=== PATIENT | male | born 1965 | race Two or more races ===

== ENCOUNTER 2019-06-05 15:55 | Emergency (ER) | payer MEDICAID, MEDICARE ==
[~2019-06-05] VITALS: Ht 167.6 cm; Wt 96.1 kg
--- NOTE | 2019-06-05 16:01 | NUR ---
pt was admitted to [facility] following a 3 day alvin drinking episode. daughter stated pt was asleep when he statred having seizure like activity lasting about 1 min. daughter stated pt did not hit his head. daughter and pt stated this has happened (seizure) in the past while trying to detox.
[2019-06-05] MEDS: PLEASE ENTER ALLERGIES MC SCH ×2 (16:18→16:27)
[2019-06-05] MEDS ORDERED: THIAMINE 100MG TABLET ONE (16:21)
[2019-06-05] MEDS ORDERED: CHLORDIAZEPOXIDE 25 MG CAPSULE ONE (16:21)
[2019-06-05 16:23] LABS: BASOPHILS # (AUTO) 0.03 x10^3/uL (0-0.1); BASOPHILS % (AUTO) 0 % (0-1); EOSINOPHILS # (AUTO) 0.14 x10^3/uL (0-0.4); EOSINOPHILS % (AUTO) 2 % (1-7); LYMPHOCYTES # (AUTO) 1.67 x10^3/uL (1-3.4); LYMPHOCYTES % (AUTO) 23 % (22-44); MD NO; MEAN CORPUSCULAR VOLUME 74.9 fL (81-97); MEAN PLATELET VOLUME 9.4 fL (7.4-10.4); MONOCYTES # (AUTO) 0.66 x10^3/uL (0.2-0.8); MONOCYTES % (AUTO) 9 % (2-9); NEUTROPHILS # (AUTO) 4.93 x10^3/uL (1.8-6.8); NEUTROPHILS % (AUTO) 66 % (42-75); PLATELET COUNT 237 x10^3/uL (130-400); RED CELL DISTRIBUTION WIDTH 16.1 % (9.4-14.8)
[2019-06-05 16:29] LABS: ALBUMIN 4.1 g/dL (3.4-5.0); ANION GAP 10 mmol/L (5-15); CALCIUM 8.4 mg/dL (8.5-10.1); CHLORIDE 110 mmol/L (98-107); CREATININE 0.97 mg/dL (0.7-1.3)
--- NOTE | 2019-06-05 16:29 | NUR ---
PT GIVEN PO RX. DAUGHTER AT BEDSIDE. CALL LIGHT WITH IN REACH. SEIZURE PADS IN PLACE.
[2019-06-05] MEDS ORDERED: CHLORDIAZEPOXIDE 25 MG CAPSULE PO PRN (16:30)
[2019-06-05] MEDS ORDERED: THIAMINE 100MG TABLET PO ONE (16:30)
--- NOTE | 2019-06-05 17:14 | NUR ---
IV STARTED. MD IN ROOM, TALKING TO PT ABOUT PREVIOUS SI TALK. RN GETTING RX MEDS.
[2019-06-05] MEDS ORDERED: DIPHENHYDRAMINE 50 MG/ML, 1ML ONE (17:20)
[2019-06-05] MEDS ORDERED: KETOROLAC 30 MG/1 ML ONE (17:21)
[2019-06-05] MEDS ORDERED: METOCLOPRAMIDE 5 MG/ML, 2ML ONE (17:21)
[2019-06-05] MEDS ORDERED: DIPHENHYDRAMINE 50 MG/ML, 1ML IVPush ONE (17:30)
[2019-06-05] MEDS ORDERED: KETOROLAC 30 MG/1 ML IVPush ONE (17:30)
[2019-06-05] MEDS ORDERED: METOCLOPRAMIDE 5 MG/ML, 2ML IVPush ONE (17:30)
[2019-06-05] MEDS ORDERED: SODIUM CHLORIDE FLUSH 10ML SYR IVF ONE (17:30)
--- NOTE | 2019-06-05 17:35 | NUR ---
IV Rx given for MARISCAL, pt taken to CT.
--- NOTE | 2019-06-05 17:49 | NUR ---
pt returned from CT, pt resting on his side, eyes closed. family in room. call light within reach, room dimmed.
[2019-06-05 19:00] VITALS: BP 138/82
== END 2019-06-05 19:20 | disposition home or self-care (01) ==
LOC: ED 16:30
DX: R56.9 Unspecified convulsions (principal); R51 Headache; I10 Essential (primary) hypertension; Z72.89 Other problems related to lifestyle
CPT/HCPCS: 36415; 70450; 80048; 82040; 85025; 96374; 96375; 99284; J1200; J1885; J2765

== ENCOUNTER 2019-11-15 05:47 | Emergency (ER) | payer MEDICAID ==
[~2019-11-15] VITALS: Ht 167.6 cm; Wt 90.9 kg
[2019-11-15] MEDS ORDERED: ONDANSETRON ODT 4 MG PO ONE (06:00)
[2019-11-15] MEDS ORDERED: THIAMINE 100MG TABLET PO ONE (06:00)
--- NOTE | 2019-11-15 06:05 | NUR ---
BIB [facility], AUDITORY AND VISUAL HALLUCINATIONS THAT STARTED YESTERDAY. PT DRINKS "MAYBE A PINT EVERY OTHER WEEK" LAST DRINK WAS YESTERDAY. "HEARING MUMMURING, NOT TELLING ME ANYTHING" C/O HEADACHE WITH PHOTOPHOBIA
--- NOTE | 2019-11-15 06:09 | NUR ---
PT PROVIDED URINAL AND INFORMED OF THE NEED FOR A URINE SAMPLE.
[2019-11-15 06:39] LABS: BASOPHILS # (AUTO) 0.03 x10^3/uL (0-0.1); BASOPHILS % (AUTO) 1 % (0-1); EOSINOPHILS # (AUTO) 0.17 x10^3/uL (0-0.4); EOSINOPHILS % (AUTO) 3 % (1-7); LYMPHOCYTES # (AUTO) 1.23 x10^3/uL (1-3.4); LYMPHOCYTES % (AUTO) 21 % (22-44); MD NO; MEAN CORPUSCULAR HEMOGLOBIN 23.4 pg (27.5-34.5); MEAN PLATELET VOLUME 9.7 fL (7.4-10.4); MONOCYTES # (AUTO) 0.48 x10^3/uL (0.2-0.8); MONOCYTES % (AUTO) 8 % (2-9); NEUTROPHILS # (AUTO) 3.99 x10^3/uL (1.8-6.8); NEUTROPHILS % (AUTO) 68 % (42-75); PLATELET COUNT 212 x10^3/uL (130-400); RED BLOOD COUNT 6.32 x10^6/uL (4.38-5.82); RED CELL DISTRIBUTION WIDTH 16.6 % (9.4-14.8)
[2019-11-15 06:47] LABS: ALBUMIN 3.8 g/dL (3.4-5.0); ANION GAP 7 mmol/L (5-15); CALCIUM 8.3 mg/dL (8.5-10.1); CHLORIDE 112 mmol/L (98-107)
[2019-11-15 06:51] LABS: ALANINE AMINOTRANSFERASE 32 U/L (12-78); ALKALINE PHOSPHATASE 80 U/L (45-117); BILIRUBIN,TOTAL 0.4 mg/dL (0.2-1.0); CREATININE 0.83 mg/dL (0.7-1.3); SALICYLATE LEVEL 2.2 mg/dL (2.8-20.0); TOTAL PROTEIN 7.7 g/dL (6.4-8.2)
[2019-11-15 07:04] LABS: AMPHETAMINE SCREEN, URINE Negative (Negative); BARBITURATE SCREEN, URINE Negative (Negative); BENZODIAZEPINE SCREEN, URINE Negative (Negative); CANNABINOID SCREEN, URINE Negative (Negative); COCAINE SCREEN, URINE Negative (Negative); METHADONE SCREEN, URINE Negative (Negative); OPIATE SCREEN, URINE Negative (Negative)
--- NOTE | 2019-11-15 07:06 | NUR ---
REPORT RECEIVED FROM SHELTON JOHN.
[2019-11-15] MEDS ORDERED: THIAMINE 100MG TABLET ONE (07:12)
[2019-11-15] MEDS ORDERED: ONDANSETRON ODT 4 MG ONE (07:12)
--- NOTE | 2019-11-15 07:16 | NUR ---
PT MEDICATED PER EMAR. PT TOLERATED WELL.
--- NOTE | 2019-11-15 07:50 | NUR ---
MEAL TRAY PROVIDED AT THIS TIME.
[2019-11-15] MEDS ORDERED: OLANZAPINE 10 MG TABLET ONE (08:38)
[2019-11-15 08:40] VITALS: BP 171/99
--- NOTE | 2019-11-15 08:42 | NUR ---
pt medicated per emar. pt tolerated well.
--- NOTE | 2019-11-15 08:49 | NUR ---
WHEN THIS RN DC THIS PT, PT STATES"I'M SCARED. I NEED TO STAY IN HOSPITAL FOR A FEW DAYS." EDMD NOTIFIED AND EDMD STATES"NO REASON TO KEEP HIM TODAY. HE NEEDS TO FOLLOW DC INSTRUCTIONS." THIS RN EDUCATED THIS PT AND PT VERBALIZED UNDERSTANDING. PT'S AOX4. RESPS EVEN AND UNLABORED. Patient given discharge instructions and they have confirmed that they understand the instructions.
[2019-11-15] MEDS ORDERED: OLANZAPINE 10 MG TABLET PO ONE (09:00)
== END 2019-11-15 08:50 | disposition home or self-care (01) ==
LOC: ED 06:37
DX: F29 Unspecified psychosis not due to a substance or known physiological condition (principal); F10.220 Alcohol dependence with intoxication, uncomplicated; I10 Essential (primary) hypertension; F17.210 Nicotine dependence, cigarettes, uncomplicated; Y90.0 Blood alcohol level of less than 20 mg/100 ml
CPT/HCPCS: 36415; 80053; 80307; 85025; 93005; 99284; Q0162

== ENCOUNTER 2020-01-13 21:37 | Inpatient (IN) | payer MEDICAID ==
[~2020-01-13] VITALS: Ht 165.1 cm; Wt 84.9 kg
[2020-01-13] MEDS ORDERED: SODIUM CHLORIDE 0.9% 1,000ML IVBOLUS ONE (22:30)
[2020-01-13] MEDS ORDERED: SODIUM CHLORIDE FLUSH 10ML SYR IVF ONE (22:30)
[2020-01-13 22:49] LABS: MEAN CORPUSCULAR HEMOGLOBIN 24.1 pg (27.5-34.5); MEAN CORPUSCULAR HGB CONC 32.6 g/dL (33.2-36.2); MEAN PLATELET VOLUME 9.3 fL (7.4-10.4); PLATELET COUNT 246 x10^3/uL (130-400); RED BLOOD COUNT 5.62 x10^6/uL (4.38-5.82); RED CELL DISTRIBUTION WIDTH 15.6 % (9.4-14.8)
[2020-01-13 22:50] LABS: ALBUMIN 3.8 g/dL (3.4-5.0); ANION GAP 12 mmol/L (5-15); CALCIUM 8.9 mg/dL (8.5-10.1); CHLORIDE 107 mmol/L (98-107)
[2020-01-13 22:53] LABS: ALANINE AMINOTRANSFERASE 37 U/L (12-78); ALKALINE PHOSPHATASE 82 U/L (45-117); BILIRUBIN,TOTAL 1.6 mg/dL (0.2-1.0); CREATININE 0.97 mg/dL (0.7-1.3); TOTAL PROTEIN 7.7 g/dL (6.4-8.2)
[2020-01-13] MEDS ORDERED: ACETAMINOPHEN 500 MG TABLET ONE (22:56)
[2020-01-13] MEDS ORDERED: ACETAMINOPHEN 500 MG TABLET PO ONE (23:00)
--- NOTE | 2020-01-13 23:14 | NUR ---
PT RESTING WITH EYES CLOSED. MONITOR IN PLACE.
[2020-01-13 23:22] LABS: MD YES
[2020-01-13 23:24] LABS: <PLATELET ESTIMATE> ADEQUATE; <PLT MORPHOLOGY> NORMAL PLT MORPH; ANISOCYTOSIS 1+; LYMPH#(MANUAL) 0.36 x10^3/uL (1-3.4); LYMPHS% (MANUAL) 6 % (22-44); MONOS#(MANUAL) 0.18 x10^3/uL (0.3-2.7); MONOS% (MANUAL) 3 % (2-9); SEG#(MANUAL) 5.46 x10^3/uL (1.8-6.8); SEGS% (MANUAL) 91 % (42-75)
--- NOTE | 2020-01-14 00:30 | NUR ---
PT AMBULATED TO [facility]. BTB. MONITOR IN PLACE. NO OTHER NEEDS AT THIS TIME.
--- NOTE | 2020-01-14 01:40 | NUR ---
PT WITH A WITNESSED GRAND MAL SEIZURE LASTING APPROX 20-30 SECONDS. PT POST DICTAL. UNABLE TO FOLLOW COMMANDS. ABLE TO MAINTAIN OWN AIRWAY. PT'S AIRWAY SUCTIONED. PT HAS SM AMT OF BLOOD COMING FROM MOUTH. UNABLE TO IDENTIFY SOURCE. HIGH FLOW 02 PLACED. NOTIFIED.
[2020-01-14] MEDS ORDERED: LEVETIRACETAM 500 MG in SODIUM CHLORIDE 0.9% 100 ML IV ONE (02:00)
[2020-01-14] MEDS ORDERED: LEVETIRACETAM 1,000 MG in SODIUM CHLORIDE 0.9% 100 ML IV ONE (02:00)
[2020-01-14 02:15] LABS: MICROSCOPIC INDICATED
[2020-01-14 02:23] LABS: AMPHETAMINE SCREEN, URINE Positive (Negative); BARBITURATE SCREEN, URINE Negative (Negative); BENZODIAZEPINE SCREEN, URINE Negative (Negative); CANNABINOID SCREEN, URINE Negative (Negative); COCAINE SCREEN, URINE Negative (Negative); METHADONE SCREEN, URINE Negative (Negative); OPIATE SCREEN, URINE Negative (Negative)
[2020-01-14 02:29] LABS: CULTURE INDICATED? NO
[2020-01-14] MEDS ORDERED: LORazepam 2 MG/ML, 1ML IVPush PRN (02:30)
[2020-01-14 03:30] VITALS: BP 147/91
[2020-01-14 09:09] VITALS: BP 165/80
[2020-01-14] MEDS: LEVETIRACETAM 500 MG TABLET PO SCH ×2 (09:25→21:04)
[2020-01-14] MEDS: ONDANSETRON 2MG/ML, 2ML IVPush PRN (09:45)
[2020-01-14] MEDS: ACETAMINOPHEN 325 MG TABLET PO PRN ×3 (09:46→21:12)
[2020-01-14] MEDS ORDERED: LORazepam 2 MG/ML, 1ML IV PRN ×2 (11:30)
[2020-01-14 12:35] VITALS: BP 125/80
[2020-01-14] MEDS: THIAMINE 100MG TABLET PO SCH (12:49)
[2020-01-14] MEDS: LORazepam 1MG TABLET PO PRN ×2 (12:49→15:20)
[2020-01-14] MEDS: FOLIC ACID 1 MG TABLET PO SCH (12:49)
[2020-01-14] MEDS: MULTIVIT.W/IRON, MINERALS ORAL SOL PO SCH (15:20)
[2020-01-14 20:20] VITALS: BP 149/94
[2020-01-15 01:59] VITALS: BP 120/85
[2020-01-15 05:42] LABS: BASOPHILS # (AUTO) 0.04 x10^3/uL (0-0.1); BASOPHILS % (AUTO) 1 % (0-1); EOSINOPHILS # (AUTO) 0.19 x10^3/uL (0-0.4); EOSINOPHILS % (AUTO) 3 % (1-7); LYMPHOCYTES # (AUTO) 1.24 x10^3/uL (1-3.4); LYMPHOCYTES % (AUTO) 18 % (22-44); MD NO; MEAN CORPUSCULAR HEMOGLOBIN 24.4 pg (27.5-34.5); MEAN CORPUSCULAR VOLUME 76.2 fL (81-97); MEAN PLATELET VOLUME 9.1 fL (7.4-10.4); MONOCYTES % (AUTO) 9 % (2-9); NEUTROPHILS % (AUTO) 71 % (42-75); PLATELET COUNT 206 x10^3/uL (130-400); RED BLOOD COUNT 5.64 x10^6/uL (4.38-5.82); RED CELL DISTRIBUTION WIDTH 16.4 % (9.4-14.8)
[2020-01-15 05:51] LABS: ALANINE AMINOTRANSFERASE 33 U/L (12-78); ALBUMIN 3.2 g/dL (3.4-5.0); ANION GAP 9 mmol/L (5-15); CALCIUM 8.4 mg/dL (8.5-10.1); CHLORIDE 109 mmol/L (98-107); CREATININE 0.84 mg/dL (0.7-1.3)
[2020-01-15 05:53] LABS: ALKALINE PHOSPHATASE 75 U/L (45-117); BILIRUBIN,TOTAL 1.3 mg/dL (0.2-1.0)
[2020-01-15 08:17] VITALS: BP 144/90
[2020-01-15] MEDS: ACETAMINOPHEN 325 MG TABLET PO PRN ×2 (09:50→15:11)
[2020-01-15] MEDS: LEVETIRACETAM 500 MG TABLET PO SCH ×2 (09:53→20:27)
[2020-01-15] MEDS: FOLIC ACID 1 MG TABLET PO SCH (09:53)
[2020-01-15] MEDS: THIAMINE 100MG TABLET PO SCH (09:53)
[2020-01-15] MEDS: MULTIVIT.W/IRON, MINERALS ORAL SOL PO SCH (09:53)
[2020-01-15] MEDS: POTASSIUM CHLORIDE 10 MEQ in D5%-0.45% NACL 1,000 ML IV SCH ×2 (09:54→20:27)
[2020-01-15 13:01] VITALS: BP 151/94
[2020-01-15] MEDS: ONDANSETRON 2MG/ML, 2ML IVPush PRN (17:05)
[2020-01-15 20:21] VITALS: BP 132/91
[2020-01-15] MEDS: LORazepam 1MG TABLET PO PRN (20:35)
[2020-01-16 00:50] VITALS: BP 131/86
[2020-01-16] MEDS: LORazepam 1MG TABLET PO PRN ×2 (05:47→09:27)
[2020-01-16] MEDS: POTASSIUM CHLORIDE 10 MEQ in D5%-0.45% NACL 1,000 ML IV SCH ×2 (05:47→20:00)
[2020-01-16 07:00] LABS: ALANINE AMINOTRANSFERASE 25 U/L (12-78); ANION GAP 5 mmol/L (5-15); CALCIUM 8.4 mg/dL (8.5-10.1); CHLORIDE 109 mmol/L (98-107); CREATININE 0.82 mg/dL (0.7-1.3)
[2020-01-16 07:03] LABS: ALKALINE PHOSPHATASE 73 U/L (45-117); BILIRUBIN,TOTAL 0.6 mg/dL (0.2-1.0); TOTAL PROTEIN 6.5 g/dL (6.4-8.2)
[2020-01-16 07:23] VITALS: BP 139/93
[2020-01-16] MEDS: THIAMINE 100MG TABLET PO SCH (08:59)
[2020-01-16] MEDS: LEVETIRACETAM 500 MG TABLET PO SCH ×2 (09:00→20:00)
[2020-01-16] MEDS: MULTIVIT.W/IRON, MINERALS ORAL SOL PO SCH (09:00)
[2020-01-16] MEDS: ENOXAPARIN 40 MG/0.4 ML SQ SCH (09:00)
[2020-01-16] MEDS: FOLIC ACID 1 MG TABLET PO SCH (09:00)
[2020-01-16] MEDS: ONDANSETRON 2MG/ML, 2ML IVPush PRN (12:14)
[2020-01-16 17:27] VITALS: BP 157/96
[2020-01-16] MEDS: POTASSIUM CHLORIDE 20 MEQ TAB.ER.PRT PO SCH (18:24)
[2020-01-16 20:21] VITALS: BP 150/92
[2020-01-17 01:20] VITALS: BP 148/87
[2020-01-17] MEDS: ONDANSETRON 2MG/ML, 2ML IVPush PRN ×2 (03:13→08:55)
[2020-01-17] MEDS: ACETAMINOPHEN 325 MG TABLET PO PRN ×3 (03:13→17:12)
[2020-01-17 05:41] LABS: ANION GAP 5 mmol/L (5-15); CALCIUM 8.3 mg/dL (8.5-10.1); CHLORIDE 109 mmol/L (98-107)
[2020-01-17 05:46] LABS: ALANINE AMINOTRANSFERASE 25 U/L (12-78); ALKALINE PHOSPHATASE 68 U/L (45-117); BILIRUBIN,TOTAL 0.8 mg/dL (0.2-1.0); CREATININE 0.87 mg/dL (0.7-1.3); TOTAL PROTEIN 6.5 g/dL (6.4-8.2)
[2020-01-17] MEDS: POTASSIUM CHLORIDE 10 MEQ in D5%-0.45% NACL 1,000 ML IV SCH (06:31)
[2020-01-17 07:05] VITALS: BP 124/83
[2020-01-17] MEDS: FOLIC ACID 1 MG TABLET PO SCH (08:54)
[2020-01-17] MEDS: LEVETIRACETAM 500 MG TABLET PO SCH ×2 (08:54→20:20)
[2020-01-17] MEDS: POTASSIUM CHLORIDE 20 MEQ TAB.ER.PRT PO SCH ×2 (08:54→17:12)
[2020-01-17] MEDS: THIAMINE 100MG TABLET PO SCH (08:54)
[2020-01-17] MEDS: ENOXAPARIN 40 MG/0.4 ML SQ SCH (08:55)
[2020-01-17] MEDS: LORazepam 0.5MG TABLET PO PRN ×2 (08:59→17:11)
[2020-01-17] MEDS: MULTIVIT.W/IRON, MINERALS ORAL SOL PO SCH (10:37)
[2020-01-17 14:03] VITALS: BP 116/85
[2020-01-17] MEDS: D5%-0.45NACL+KCL 20MEQ 1,000 ML IV SCH (17:48)
[2020-01-17 19:19] VITALS: BP 139/89
[2020-01-18] MEDS: LORazepam 0.5MG TABLET PO PRN (00:09)
[2020-01-18] MEDS: ACETAMINOPHEN 325 MG TABLET PO PRN ×2 (00:09→08:58)
[2020-01-18 00:35] VITALS: BP 146/93
[2020-01-18 05:26] LABS: CHLORIDE 111 mmol/L (98-107)
[2020-01-18 05:33] LABS: ANION GAP 6 mmol/L (5-15); CALCIUM 8.4 mg/dL (8.5-10.1); CREATININE 0.81 mg/dL (0.7-1.3)
[2020-01-18 05:34] LABS: % IRON SATURATION 18 % (20-55); ALANINE AMINOTRANSFERASE 22 U/L (12-78); ALBUMIN 2.9 g/dL (3.4-5.0); ALKALINE PHOSPHATASE 67 U/L (45-117); BILIRUBIN,TOTAL 0.6 mg/dL (0.2-1.0); IRON LEVEL 45 mcg/dL (65-175); TOTAL IRON BINDING CAPACITY 248 mcg/dL (250-450); TOTAL PROTEIN 6.4 g/dL (6.4-8.2)
[2020-01-18] MEDS ORDERED: D5%-0.45NACL+KCL 20MEQ 1,000 ML IV SCH (08:30)
[2020-01-18 08:34] VITALS: BP 129/88
[2020-01-18] MEDS: POTASSIUM CHLORIDE 20 MEQ TAB.ER.PRT PO SCH (08:59)
[2020-01-18] MEDS: THIAMINE 100MG TABLET PO SCH (08:59)
[2020-01-18] MEDS: ENOXAPARIN 40 MG/0.4 ML SQ SCH (08:59)
[2020-01-18] MEDS: FOLIC ACID 1 MG TABLET PO SCH (08:59)
[2020-01-18] MEDS: LEVETIRACETAM 500 MG TABLET PO SCH (08:59)
[2020-01-18] MEDS: MULTIVIT.W/IRON, MINERALS ORAL SOL PO SCH (09:00)
[2020-01-18] MEDS ORDERED: CHLO25CA9 PO (09:49)
[2020-01-18] MEDS ORDERED: LEVE500T53 PO (11:27)
[2020-01-18 13:26] VITALS: BP 132/84
[2020-01-18] MEDS: D5%-0.45NACL+KCL 20MEQ 1,000 ML IV SCH (14:00)
== END 2020-01-18 14:55 | disposition home or self-care (01) | DRG 101 ==
LOC: ED 01-14 01:58 → EDIP 01-14 03:08 → INTOOBSV 01-14 03:08 → OBSVTOIN 01-14 03:08 → 4WST 01-14 03:10
PROVIDERS: ADMIT Family Medicine; ATTEND Family Medicine
DX: G40.909 Epilepsy, unspecified, not intractable, without status epilepticus (principal); F10.229 Alcohol dependence with intoxication, unspecified; F15.10 Other stimulant abuse, uncomplicated; I10 Essential (primary) hypertension; K76.9 Liver disease, unspecified; E80.6 Other disorders of bilirubin metabolism; Z86.73 Personal history of transient ischemic attack (TIA), and cerebral infarction without residual deficits; E16.2 Hypoglycemia, unspecified
CPT/HCPCS: 36415; 70450; 80053; 80307; 81001; 82728; 82962; 83540; 83550; 83735; 84100; 85025; 93005; 96374; 96375; G0378; J1650; J1953; J2405; J3480; J2060; J7030

== ENCOUNTER 2020-04-17 08:13 | Inpatient (IN) | payer MEDICAID ==
[~2020-04-17] VITALS: Ht 165.1 cm; Wt 83.7 kg
[~2020-04-17 08:13] MED LIST: CHLO25CA9 PO; LEVE500T53 PO
--- NOTE | 2020-04-17 08:15 | NUR ---
Code Neuro called at 0811, pt to CT
--- NOTE | 2020-04-17 08:25 | NUR ---
PT BIB [facility], STATES H/A STARTING LAST NIGHT AT 2100. EMS STATES PT WOKE UP THIS AM AT APPROX 0500 WITH NEW ONSET RT SIDED WEAKNESS, PT HAD UNSTEADY GAIT WHEN EMS ARRIVED ON SCENE. PT C/C 8/ H/A, SENSITIVITY TO LIGHT. WHEN PT ARRIVED TO ER, PT ASSESSED BY DR. LIMA BRIEFLY, THEN BROUGHT DIRECTLY TO CT WHILE REMAINING ON [facility] GURNEY AND [facility] MONITOR. PT PROTECTING OWN AIRWAY WELL, ALERT X3, GCS 14. PT MOVED TO CT BED AND PLACED ON ER MONITOR. PRIMARY RN, HOUSE SUP RN AND STROKE TEAM RN REMAIN IN CT DURING EXAM.
--- NOTE | 2020-04-17 08:35 | NUR ---
Pt back from CT
--- NOTE | 2020-04-17 08:40 | NUR ---
PT BACK FROM CT. 2ND IV STARTED, PT PLACED ON ER MONITORS. PT ALERT AND ORIENTED X4, CONTINUES TO STATES H/A AT 10/10 PAIN. PT PLACED IN HOSPITAL GOWN, BELONGINGS PLACED IN BAG. PT AWARE OF POC, NEURO TO ASSESS PT VIA TELE ROBOT. AWAITING CT RESULTS. PT ADMITS TO DRINKING A "PINT" OF ETOH LAST NIGHT, STATED HE WAS HAVING A BAD DAY AND NEEDED TO DRINK. ERMD AWARE.
[2020-04-17 08:50] LABS: BASOPHILS # (AUTO) 0.01 x10^3/uL (0-0.1); BASOPHILS % (AUTO) 0 % (0-1); EOSINOPHILS # (AUTO) 0.01 x10^3/uL (0-0.4); EOSINOPHILS % (AUTO) 0 % (1-7); LYMPHOCYTES # (AUTO) 0.72 x10^3/uL (1-3.4); LYMPHOCYTES % (AUTO) 10 % (22-44); MD NO; MEAN CORPUSCULAR HEMOGLOBIN 23.9 pg (27.5-34.5); MEAN CORPUSCULAR HGB CONC 32.4 g/dL (33.2-36.2); MEAN CORPUSCULAR VOLUME 73.8 fL (81-97); MEAN PLATELET VOLUME 8.9 fL (7.4-10.4); MONOCYTES # (AUTO) 0.36 x10^3/uL (0.2-0.8); MONOCYTES % (AUTO) 5 % (2-9); NEUTROPHILS # (AUTO) 6.14 x10^3/uL (1.8-6.8); NEUTROPHILS % (AUTO) 85 % (42-75); PLATELET COUNT 249 x10^3/uL (130-400); RED BLOOD COUNT 6.21 x10^6/uL (4.38-5.82); RED CELL DISTRIBUTION WIDTH 15.5 % (9.4-14.8)
--- NOTE | 2020-04-17 08:50 | NUR ---
DR. KHAN ON TELE ROBOT FOR ASSESSMENT, PRIMARY RN TO ASSIST IN ASSESSMENT.
[2020-04-17 09:00] LABS: INTERNATIONAL NORMALIZED RATIO 1.04 (0.93-1.1)
[2020-04-17] MEDS ORDERED: PLEASE ENTER ALLERGIES MC SCH (09:00)
[2020-04-17] MEDS ORDERED: LORazepam 2 MG/ML, 1ML IVPush ONE (09:00)
[2020-04-17 09:05] LABS: TROPONIN I < 0.015 ng/mL (0.000-0.045)
[2020-04-17] MEDS ORDERED: LORazepam 2 MG/ML, 1ML ONE (09:06)
[2020-04-17] MEDS ORDERED: ONDANSETRON 2MG/ML, 2ML ONE (09:07)
--- NOTE | 2020-04-17 09:10 | NUR ---
PT MEDICATED PER ORDERS WITH ATIVAN AND ZOFRAN. PT WITH SMALL AMOUNT OF EMISIS, CHAR AWARE. PT REMAINS ON MONITORS, VSS, AND PT REMAINS PROTECTING OWN AIRWAY WELL. PER CHAR AND DR. LEHMAN, PT WILL NOT BE TPA CANDIDATE.
[2020-04-17] MEDS ORDERED: ONDANSETRON 2MG/ML, 2ML IVPush ONE (09:30)
--- NOTE | 2020-04-17 09:45 | NUR ---
PT RESTING COMFORTABLY IN BED, SEIZURE PADS IN PLACE. PT REMAINS ON MONITORS, VSS. PT SLEEPING, EASY TO ROUSE BY VOICE. NO DISTRESS, CONT TO MONITOR.
--- NOTE | 2020-04-17 10:35 | NUR ---
REPORT GIVEN TO ERIKA JOHN. PT MOVED TO [facility].
[2020-04-17 10:50] LABS: AMPHETAMINE SCREEN, URINE Negative (Negative); BARBITURATE SCREEN, URINE Negative (Negative); BENZODIAZEPINE SCREEN, URINE Negative (Negative); CANNABINOID SCREEN, URINE Negative (Negative); COCAINE SCREEN, URINE Negative (Negative); METHADONE SCREEN, URINE Negative (Negative); OPIATE SCREEN, URINE Negative (Negative)
--- NOTE | 2020-04-17 10:54 | NUR ---
REPORT RECEIVED FROM RN VALENTINA, PT ASSESSED BY THIS RN. PT HAS GENERALIZED WEAKNESS (CONSISTENT WITH PREVIOUS RN'S ASSESSMENT). PUPILS EQUAL, ROUND AND REACTIVE. PT DROWSY, AWAKENS TO VOICE. ORIENTED X 4, SPEECH CLEAR. PT REPORTS 8/10 RIGHT SIDED HEADACHE, STATES "ITS FEELING WORSE THAN WHEN I WOKE UP THIS MORNING." VERENA LIMA NOTIFIED. TYLENOL ORDERED BY MD. ALL MONITORS IN PLACE, CALL LIGHT IN REACH, SEIZURE PRECAUTIONS IN PLACE.
[2020-04-17] MEDS ORDERED: ACETAMINOPHEN 500 MG TABLET PO ONE (11:00)
--- NOTE | 2020-04-17 11:11 | NUR ---
REPORT GIVEN TO RECEIVING RN MARINA. PT AWAITING TRANSPORT TO [facility]
[2020-04-17] MEDS ORDERED: POTASSIUM CHLORIDE 20 MEQ, MAGNESIUM SULFATE 2 GM, THIAMINE 200 MG, MVI ADULT 10 ML, FO... IV SCH (11:52)
[2020-04-17] MEDS ORDERED: KETOROLAC 30 MG/1 ML IV PRN (12:00)
[2020-04-17] MEDS ORDERED: LORazepam 2 MG/ML, 1ML IV PRN ×4 (12:00)
[2020-04-17] MEDS ORDERED: LABETALOL 5MG/ML, 20ML IVPush PRN (12:00)
[2020-04-17 12:09] VITALS: BP 173/100
[2020-04-17 12:23] VITALS: BP 161/102
[2020-04-17] MEDS ORDERED: SENNA/DOCUSATE TABLET PO PRN (12:30)
[2020-04-17] MEDS: BUTALB/APAP/CAFFEINE 50MG/325MG/40MG PO PRN (14:35)
[2020-04-17] MEDS: ONDANSETRON 2MG/ML, 2ML IVPush PRN (17:59)
[2020-04-17 19:49] VITALS: BP 156/94
[2020-04-17] MEDS: ACETAMINOPHEN 325 MG TABLET PO PRN (21:20)
[2020-04-17] MEDS: LEVETIRACETAM 500 MG TABLET PO SCH (21:20)
[2020-04-17] MEDS: AMLODIPINE 5 MG TABLET PO SCH (21:20)
[2020-04-17] MEDS: LORazepam 2 MG/ML, 1ML IV PRN (21:25)
[2020-04-18 01:58] VITALS: BP 147/89
[2020-04-18] MEDS: ACETAMINOPHEN 325 MG TABLET PO PRN ×2 (03:44→20:21)
[2020-04-18 04:20] LABS: BASOPHILS # (AUTO) 0.01 x10^3/uL (0-0.1); BASOPHILS % (AUTO) 0 % (0-1); EOSINOPHILS # (AUTO) 0.22 x10^3/uL (0-0.4); EOSINOPHILS % (AUTO) 5 % (1-7); LYMPHOCYTES # (AUTO) 1.21 x10^3/uL (1-3.4); LYMPHOCYTES % (AUTO) 27 % (22-44); MD NO; MEAN CORPUSCULAR HEMOGLOBIN 23.4 pg (27.5-34.5); MEAN CORPUSCULAR HGB CONC 31.5 g/dL (33.2-36.2); MEAN CORPUSCULAR VOLUME 74.2 fL (81-97); MEAN PLATELET VOLUME 9.7 fL (7.4-10.4); MONOCYTES % (AUTO) 9 % (2-9); NEUTROPHILS # (AUTO) 2.65 x10^3/uL (1.8-6.8); NEUTROPHILS % (AUTO) 59 % (42-75); PLATELET COUNT 191 x10^3/uL (130-400); RED BLOOD COUNT 5.67 x10^6/uL (4.38-5.82); RED CELL DISTRIBUTION WIDTH 14.9 % (9.4-14.8)
[2020-04-18 04:28] LABS: ANION GAP 6 mmol/L (5-15); CALCIUM 8.3 mg/dL (8.5-10.1); CHLORIDE 110 mmol/L (98-107)
[2020-04-18 04:30] LABS: CREATININE 0.87 mg/dL (0.7-1.3)
[2020-04-18 06:30] VITALS: BP 118/83
[2020-04-18] MEDS: ONDANSETRON 2MG/ML, 2ML IVPush PRN ×3 (07:20→20:21)
[2020-04-18 09:31] LABS: CHOL/HDL RATIO 2.5; LDL/HDL RATIO 1.2 (0.5-3.0)
[2020-04-18] MEDS: LEVETIRACETAM 500 MG TABLET PO SCH ×2 (09:38→20:21)
[2020-04-18] MEDS: AMLODIPINE 5 MG TABLET PO SCH ×2 (09:38→20:21)
[2020-04-18] MEDS: BUTALB/APAP/CAFFEINE 50MG/325MG/40MG PO PRN (09:38)
[2020-04-18] MEDS: LORazepam 2 MG/ML, 1ML IV PRN ×3 (09:38→20:23)
[2020-04-18] MEDS: FERROUS SULFATE 325 MG TABLET PO SCH ×3 (09:39→16:58)
[2020-04-18] MEDS ORDERED: LISI-420 MT (10:20)
[2020-04-18 12:21] VITALS: BP 142/92
[2020-04-18] MEDS ORDERED: POTASSIUM CHLORIDE 20 MEQ, MAGNESIUM SULFATE 2 GM, THIAMINE 200 MG, MVI ADULT 10 ML, FO... IV SCH (13:00)
[2020-04-18] MEDS: SODIUM CHLORIDE 0.9% 1,000 ML IV SCH (15:03)
[2020-04-18 18:19] VITALS: BP 138/87
[2020-04-19 02:00] VITALS: BP 129/82
[2020-04-19] MEDS: SODIUM CHLORIDE 0.9% 1,000 ML IV SCH (04:33)
[2020-04-19] MEDS: BUTALB/APAP/CAFFEINE 50MG/325MG/40MG PO PRN (04:36)
[2020-04-19] MEDS: ONDANSETRON 2MG/ML, 2ML IVPush PRN (04:36)
[2020-04-19 06:23] VITALS: BP 156/92
[2020-04-19] MEDS: LORazepam 2 MG/ML, 1ML IV PRN (07:24)
[2020-04-19] MEDS: FERROUS SULFATE 325 MG TABLET PO SCH (07:25)
[2020-04-19] MEDS: ACETAMINOPHEN 325 MG TABLET PO PRN (07:25)
[2020-04-19] MEDS: AMLODIPINE 5 MG TABLET PO SCH (07:25)
[2020-04-19] MEDS: LEVETIRACETAM 500 MG TABLET PO SCH (07:25)
[2020-04-19] MEDS ORDERED: AMLO-150 PO (09:48)
[2020-04-19] MEDS ORDERED: FERR-51 PO (09:48)
[2020-04-19] MEDS ORDERED: LEVE500T53 PO (09:48)
[2020-04-19] MEDS ORDERED: ONDA8TAB9 PO (10:39)
== END 2020-04-19 12:00 | disposition left against medical advice (07) | DRG 56 ==
LOC: EDUNIT# 08:13 → ED 10:00 → EDIP 10:33 → 4EST 11:27
PROVIDERS: ADMIT Hospitalist; ATTEND Hospitalist
DX: I69.951 Hemiplegia and hemiparesis following unspecified cerebrovascular disease affecting right dominant side (principal); G93.41 Metabolic encephalopathy; I10 Essential (primary) hypertension; F43.10 Post-traumatic stress disorder, unspecified; R56.9 Unspecified convulsions; Y90.0 Blood alcohol level of less than 20 mg/100 ml; F10.229 Alcohol dependence with intoxication, unspecified; R29.700 NIHSS score 0; Z90.49 Acquired absence of other specified parts of digestive tract; Z79.899 Other long term (current) drug therapy; Z91.14 Patient's other noncompliance with medication regimen; Z86.79 Personal history of other diseases of the circulatory system
CPT/HCPCS: 36415; 96374; 99285; J7042; 70450; 70496; 70498; 70551; 71045; 80047; 80048; 80061; 80307; 82962; 83735; 84100; 84484; 85025; 85610; 85730; 93005; 93306; G0378; J1885; J2405; J3411; J3475; J3480; J2060; J7030

== ENCOUNTER 2020-06-06 08:58 | Emergency (ER) | payer MEDICAID ==
[~2020-06-06] VITALS: Ht 167.6 cm; Wt 68.0 kg
[~2020-06-06 08:58] MED LIST changes: +AMLO-150 PO; +FERR-51 PO; +LISI-420 MT; +ONDA8TAB9 PO
[2020-06-06 09:32] LABS: MEAN CORPUSCULAR HEMOGLOBIN 23.8 pg (27.5-34.5); MEAN CORPUSCULAR HGB CONC 31.4 g/dL (33.2-36.2); MEAN CORPUSCULAR VOLUME 75.8 fL (81-97); MEAN PLATELET VOLUME 8.9 fL (7.4-10.4); PLATELET COUNT 157 x10^3/uL (130-400); RED BLOOD COUNT 5.24 x10^6/uL (4.38-5.82); RED CELL DISTRIBUTION WIDTH 16.7 % (9.4-14.8)
[2020-06-06 09:35] LABS: ALANINE AMINOTRANSFERASE 45 U/L (12-78); ALBUMIN 3.2 g/dL (3.4-5.0); ANION GAP 9 mmol/L (5-15); CALCIUM 8.1 mg/dL (8.5-10.1); CHLORIDE 105 mmol/L (98-107); CREATININE 0.84 mg/dL (0.7-1.3); SALICYLATE LEVEL 1.7 mg/dL (2.8-20.0)
[2020-06-06 09:37] LABS: ALKALINE PHOSPHATASE 90 U/L (45-117); BILIRUBIN,TOTAL 0.5 mg/dL (0.2-1.0); TOTAL PROTEIN 7.5 g/dL (6.4-8.2)
[2020-06-06 09:55] LABS: BARBITURATE SCREEN, URINE Negative (Negative); BENZODIAZEPINE SCREEN, URINE Negative (Negative); CANNABINOID SCREEN, URINE Negative (Negative); COCAINE SCREEN, URINE Negative (Negative); METHADONE SCREEN, URINE Negative (Negative); OPIATE SCREEN, URINE Negative (Negative)
[2020-06-06 09:56] LABS: AMPHETAMINE SCREEN, URINE Negative (Negative)
[2020-06-06 09:59] LABS: BASOPHILS # (AUTO) 0.01 x10^3/uL (0-0.1); BASOPHILS % (AUTO) 0 % (0-1); EOSINOPHILS # (AUTO) 0.01 x10^3/uL (0-0.4); EOSINOPHILS % (AUTO) 0 % (1-7); LYMPHOCYTES # (AUTO) 0.73 x10^3/uL (1-3.4); LYMPHOCYTES % (AUTO) 14 % (22-44); MD SCAN; MONOCYTES # (AUTO) 0.23 x10^3/uL (0.2-0.8); MONOCYTES % (AUTO) 5 % (2-9); NEUTROPHILS # (AUTO) 4.11 x10^3/uL (1.8-6.8); NEUTROPHILS % (AUTO) 81 % (42-75)
[2020-06-06 11:19] VITALS: BP 159/90
[2020-06-06] MEDS ORDERED: LORazepam 1MG TABLET ONE ×2 (11:48→15:26)
--- NOTE | 2020-06-06 11:53 | NUR ---
FOOD TRAY PROVIDED. PT VISIBLY TREMULOUS. MEDICATED PER JAN.
[2020-06-06] MEDS ORDERED: LORazepam 1MG TABLET PO ONE ×2 (12:00→15:30)
--- NOTE | 2020-06-06 14:27 | NUR ---
REPORT RECEIVED FROM SYLVIA JOHN.
--- NOTE | 2020-06-06 15:06 | NUR ---
PROFESSOR OF BIOCHEMISTRY AT BEDSIDE TO EVALUATE AT THIS TIME.
--- NOTE | 2020-06-06 15:27 | NUR ---
PT MEDICATED PER EMAR. PT TOLERATED WELL.
--- NOTE | 2020-06-06 15:27 | NUR ---
PT'S BELONGINGS PUT INTO ONE BAG AND PUT INTO THE LOCKER AT THIS TIME.
--- NOTE | 2020-06-06 15:36 | NUR ---
PT AMB TO BR WITH STEADY GAIT.
--- NOTE | 2020-06-06 16:03 | NUR ---
PT SLEEPING IN [facility]. RESPS EVEN AND UNLABORED. SITTER MONITORING FROM HALLWAY FOR SAFETY. ROOM REMAINS SECURE.
--- NOTE | 2020-06-06 17:35 | NUR ---
DIET TRAY ORDERED AT THIS TIME.
[2020-06-06] MEDS ORDERED: LORazepam 1MG TABLET PO PRN (18:00)
--- NOTE | 2020-06-06 18:05 | NUR ---
REPORT GIVEN TO SILVANA JOHN. ALL QUESTIONS ANSWERED.
--- NOTE | 2020-06-06 18:56 | NUR ---
RECEIVED BEDSIDE REPORT FROM DORA ROGERS. PT LAYING IN BED, MOVING TO POSITION OF COMFORT, RESPIRATIONS EVEN AND UNLABORED, EYES CLOSED, REMAINS IN VIEW OF THE SITTER.
== END 2020-06-06 19:00 ==
LOC: ED 10:25
DX: R45.851 Suicidal ideations (principal); F10.220 Alcohol dependence with intoxication, uncomplicated; F15.10 Other stimulant abuse, uncomplicated; F41.9 Anxiety disorder, unspecified; I10 Essential (primary) hypertension; F17.210 Nicotine dependence, cigarettes, uncomplicated; Z86.73 Personal history of transient ischemic attack (TIA), and cerebral infarction without residual deficits; Y90.9 Presence of alcohol in blood, level not specified
CPT/HCPCS: 36415; 80053; 80307; 85025; 99285

== ENCOUNTER 2020-06-06 19:34 | Inpatient (IN) | payer MEDICAID ==
[~2020-06-06] VITALS: Ht 175.3 cm; Wt 82.2 kg
[2020-06-06 20:00] VITALS: BP 151/94
[2020-06-06] MEDS ORDERED: POLYETHYLENE GLYCOL 17 GM PACKET PO PRN (20:00)
[2020-06-06] MEDS ORDERED: ACETAMINOPHEN 325 MG TABLET PO PRN (20:00)
[2020-06-06] MEDS ORDERED: ONDANSETRON ODT 4 MG PO PRN (20:00)
[2020-06-06] MEDS: PLEASE ENTER ALLERGIES MC SCH (20:00)
[2020-06-06] MEDS ORDERED: DOCUSATE 100 MG CAPSULE PO PRN (20:00)
[2020-06-06] MEDS ORDERED: BISACODYL 10 MG SUPP PR PRN (20:00)
[2020-06-07] MEDS: PLEASE ENTER ALLERGIES MC SCH (04:00)
[2020-06-07 04:54] LABS: MICROSCOPIC INDICATED
[2020-06-07 06:34] LABS: CHOL/HDL RATIO 1.7; LDL/HDL RATIO 0.5 (0.5-3.0)
[2020-06-07 07:19] VITALS: BP 149/97
[2020-06-07] MEDS ORDERED: LORazepam 1MG TABLET PO PRN (08:00)
[2020-06-07] MEDS: LORazepam 1MG TABLET PO SCH ×3 (08:20→20:13)
[2020-06-07] MEDS: NICOTINE 14MG/24 HR PATCH.TD24 TD SCH (09:00)
[2020-06-07] MEDS ORDERED: ONDANSETRON 8 MG TABLET PO PRN (10:00)
[2020-06-07] MEDS: FERROUS SULFATE 325 MG TABLET PO SCH ×2 (12:00→17:30)
[2020-06-07] MEDS ORDERED: ONDANSETRON 2MG/ML, 2ML IVPush ONE (12:30)
[2020-06-07] MEDS: SERTRALINE 50MG TABLET PO SCH (13:39)
[2020-06-07 19:24] VITALS: BP 128/82
[2020-06-07] MEDS: LEVETIRACETAM 500 MG TABLET PO SCH (20:13)
[2020-06-08] MEDS: LORazepam 1MG TABLET PO SCH ×4 (02:01→20:24)
[2020-06-08 02:02] VITALS: BP 148/81
[2020-06-08 07:05] VITALS: BP_SYST 128; BP_DIAS 82; BP_DIAS 83
[2020-06-08] MEDS: SERTRALINE 50MG TABLET PO SCH (08:41)
[2020-06-08] MEDS: THIAMINE 100MG TABLET PO SCH (08:42)
[2020-06-08] MEDS: MULTIVITAMIN 1 TABLET PO SCH (08:42)
[2020-06-08] MEDS: FOLIC ACID 1 MG TABLET PO SCH (08:43)
[2020-06-08] MEDS: LEVETIRACETAM 500 MG TABLET PO SCH ×2 (08:43→20:24)
[2020-06-08] MEDS: AMLODIPINE 10 MG TAB PO SCH (08:43)
[2020-06-08] MEDS: FERROUS SULFATE 325 MG TABLET PO SCH ×3 (08:43→17:15)
[2020-06-08] MEDS: NICOTINE 14MG/24 HR PATCH.TD24 TD SCH (08:46)
[2020-06-08] MEDS: LISINOPRIL 20 MG TABLET PO SCH (08:51)
[2020-06-08] MEDS: ACAMPROSATE 333 MG TABLET.DR PO SCH ×2 (16:00→20:24)
[2020-06-08 19:46] VITALS: BP 109/76
[2020-06-09] MEDS: LORazepam 1MG TABLET PO SCH ×4 (02:03→20:14)
[2020-06-09 07:00] VITALS: BP 110/73
[2020-06-09] MEDS: FERROUS SULFATE 325 MG TABLET PO SCH ×3 (08:28→16:27)
[2020-06-09] MEDS: ACAMPROSATE 333 MG TABLET.DR PO SCH ×3 (08:29→20:13)
[2020-06-09] MEDS: MULTIVITAMIN 1 TABLET PO SCH (08:30)
[2020-06-09] MEDS: LISINOPRIL 20 MG TABLET PO SCH (08:30)
[2020-06-09] MEDS: SERTRALINE 50MG TABLET PO SCH (08:31)
[2020-06-09] MEDS: AMLODIPINE 10 MG TAB PO SCH (08:31)
[2020-06-09] MEDS: LEVETIRACETAM 500 MG TABLET PO SCH ×2 (08:32→20:14)
[2020-06-09] MEDS: THIAMINE 100MG TABLET PO SCH (08:32)
[2020-06-09] MEDS: FOLIC ACID 1 MG TABLET PO SCH (08:32)
[2020-06-09] MEDS: NICOTINE 14MG/24 HR PATCH.TD24 TD SCH (08:50)
[2020-06-09 19:43] VITALS: BP 91/55
[2020-06-09 20:12] VITALS: BP 107/68
[2020-06-09] MEDS: TRAZODONE 100MG TABLET PO SCH (20:14)
[2020-06-10] MEDS: LORazepam 1MG TABLET PO SCH ×4 (02:14→20:23)
[2020-06-10 02:16] VITALS: BP 122/75
[2020-06-10 06:58] VITALS: BP 101/65
[2020-06-10] MEDS: ACAMPROSATE 333 MG TABLET.DR PO SCH ×3 (08:26→20:24)
[2020-06-10] MEDS: FERROUS SULFATE 325 MG TABLET PO SCH ×3 (08:27→16:33)
[2020-06-10] MEDS: SERTRALINE 50MG TABLET PO SCH (08:27)
[2020-06-10] MEDS: THIAMINE 100MG TABLET PO SCH (08:27)
[2020-06-10] MEDS: MULTIVITAMIN 1 TABLET PO SCH (08:27)
[2020-06-10] MEDS: LEVETIRACETAM 500 MG TABLET PO SCH ×2 (08:27→20:24)
[2020-06-10] MEDS: FOLIC ACID 1 MG TABLET PO SCH (08:27)
[2020-06-10] MEDS: AMLODIPINE 10 MG TAB PO SCH (08:27)
[2020-06-10] MEDS: LISINOPRIL 20 MG TABLET PO SCH (08:27)
[2020-06-10] MEDS: NICOTINE 14MG/24 HR PATCH.TD24 TD SCH (08:28)
[2020-06-10 19:51] VITALS: BP 120/77
[2020-06-10] MEDS: TRAZODONE 100MG TABLET PO SCH (20:24)
[2020-06-11] MEDS: LORazepam 1MG TABLET PO SCH ×4 (03:07→19:42)
[2020-06-11 07:00] VITALS: BP 113/77
[2020-06-11] MEDS: FERROUS SULFATE 325 MG TABLET PO SCH ×3 (08:03→16:46)
[2020-06-11] MEDS: NICOTINE 14MG/24 HR PATCH.TD24 TD SCH (09:03)
[2020-06-11] MEDS: FOLIC ACID 1 MG TABLET PO SCH (09:04)
[2020-06-11] MEDS: AMLODIPINE 10 MG TAB PO SCH (09:04)
[2020-06-11] MEDS: LISINOPRIL 20 MG TABLET PO SCH (09:04)
[2020-06-11] MEDS: ACAMPROSATE 333 MG TABLET.DR PO SCH ×3 (09:05→19:41)
[2020-06-11] MEDS: THIAMINE 100MG TABLET PO SCH (09:05)
[2020-06-11] MEDS: LEVETIRACETAM 500 MG TABLET PO SCH ×2 (09:18→19:42)
[2020-06-11] MEDS: MULTIVITAMIN 1 TABLET PO SCH (09:19)
[2020-06-11] MEDS ORDERED: SERTRALINE 50MG TABLET PO SCH (11:00)
[2020-06-11] MEDS ORDERED: SERTRALINE 50MG TABLET PO ONE (11:15)
[2020-06-11 18:55] VITALS: BP 102/65
[2020-06-11] MEDS: TRAZODONE 100MG TABLET PO SCH (19:42)
[2020-06-12] MEDS: LORazepam 1MG TABLET PO SCH ×2 (02:00→09:12)
[2020-06-12 07:00] VITALS: BP 102/69
[2020-06-12] MEDS: NICOTINE 14MG/24 HR PATCH.TD24 TD SCH (09:00)
[2020-06-12] MEDS: LEVETIRACETAM 500 MG TABLET PO SCH ×2 (09:12→20:06)
[2020-06-12] MEDS: FERROUS SULFATE 325 MG TABLET PO SCH ×3 (09:12→17:32)
[2020-06-12] MEDS: FOLIC ACID 1 MG TABLET PO SCH (09:13)
[2020-06-12] MEDS: LISINOPRIL 20 MG TABLET PO SCH (09:13)
[2020-06-12] MEDS: ACAMPROSATE 333 MG TABLET.DR PO SCH ×3 (09:13→20:06)
[2020-06-12] MEDS: AMLODIPINE 10 MG TAB PO SCH (09:14)
[2020-06-12] MEDS: MULTIVITAMIN 1 TABLET PO SCH (09:14)
[2020-06-12] MEDS: THIAMINE 100MG TABLET PO SCH (09:14)
[2020-06-12] MEDS: SERTRALINE 100MG TABLET PO SCH (09:16)
[2020-06-12] MEDS ORDERED: MULT-449 PO (11:41)
[2020-06-12] MEDS ORDERED: ACAM333T7 PO (11:41)
[2020-06-12] MEDS ORDERED: SERT100T32 PO (11:41)
[2020-06-12] MEDS ORDERED: FERR-51 PO (11:41)
[2020-06-12] MEDS ORDERED: AMLO-150 PO (11:41)
[2020-06-12] MEDS ORDERED: TRAZ-175 PO (11:41)
[2020-06-12] MEDS ORDERED: LISI-420 MT (11:41)
[2020-06-12] MEDS ORDERED: LEVE500T53 PO (11:41)
[2020-06-12 19:33] VITALS: BP 117/72
[2020-06-12] MEDS: TRAZODONE 100MG TABLET PO SCH (20:06)
[2020-06-13 07:19] VITALS: BP 105/69
[2020-06-13] MEDS: FERROUS SULFATE 325 MG TABLET PO SCH (08:35)
[2020-06-13] MEDS: ACAMPROSATE 333 MG TABLET.DR PO SCH (08:35)
[2020-06-13] MEDS: FOLIC ACID 1 MG TABLET PO SCH (08:35)
[2020-06-13] MEDS: LEVETIRACETAM 500 MG TABLET PO SCH (08:35)
[2020-06-13] MEDS: AMLODIPINE 10 MG TAB PO SCH (08:35)
[2020-06-13] MEDS: LISINOPRIL 20 MG TABLET PO SCH (08:36)
[2020-06-13] MEDS: SERTRALINE 100MG TABLET PO SCH (08:36)
[2020-06-13] MEDS: THIAMINE 100MG TABLET PO SCH (08:36)
[2020-06-13] MEDS: MULTIVITAMIN 1 TABLET PO SCH (08:36)
[2020-06-13] MEDS: NICOTINE 14MG/24 HR PATCH.TD24 TD SCH (09:00)
== END 2020-06-13 11:00 | disposition home or self-care (01) | DRG 885 ==
LOC: 3E 19:34 → MERGE 19:34 → 3E 20:48
PROVIDERS: ADMIT Psychiatry & Neurology Psychosomatic Medicine; ATTEND Psychiatry & Neurology Psychosomatic Medicine
DX: F32.2 Major depressive disorder, single episode, severe without psychotic features (principal); R45.851 Suicidal ideations; F15.20 Other stimulant dependence, uncomplicated; F15.90 Other stimulant use, unspecified, uncomplicated; F43.10 Post-traumatic stress disorder, unspecified; I10 Essential (primary) hypertension; F32.9 Major depressive disorder, single episode, unspecified; F10.20 Alcohol dependence, uncomplicated; F17.200 Nicotine dependence, unspecified, uncomplicated; E61.1 Iron deficiency; F15.10 Other stimulant abuse, uncomplicated; G40.909 Epilepsy, unspecified, not intractable, without status epilepticus; F10.10 Alcohol abuse, uncomplicated; G47.00 Insomnia, unspecified; Z79.899 Other long term (current) drug therapy; Z82.49 Family history of ischemic heart disease and other diseases of the circulatory system; Z86.73 Personal history of transient ischemic attack (TIA), and cerebral infarction without residual deficits; Z87.891 Personal history of nicotine dependence; Z83.3 Family history of diabetes mellitus; Z90.49 Acquired absence of other specified parts of digestive tract; Z79.891 Long term (current) use of opiate analgesic
CPT/HCPCS: 36415; 80061; 81001; 87086; 93005; J2405; Q0162

== ENCOUNTER 2020-06-14 08:14 | Emergency (ER) | payer MEDICAID ==
[~2020-06-14] VITALS: Ht 167.6 cm; Wt 87.0 kg
[~2020-06-14 08:14] MED LIST changes: +ACAM333T7 PO; +MULT-449 PO; +SERT100T32 PO; +TRAZ-175 PO
[2020-06-14 09:16] LABS: BASOPHILS # (AUTO) 0.02 x10^3/uL (0-0.1); BASOPHILS % (AUTO) 0 % (0-1); EOSINOPHILS % (AUTO) 0 % (1-7); LYMPHOCYTES # (AUTO) 0.83 x10^3/uL (1-3.4); LYMPHOCYTES % (AUTO) 15 % (22-44); MD NO; MEAN CORPUSCULAR HEMOGLOBIN 23.8 pg (27.5-34.5); MEAN CORPUSCULAR HGB CONC 31.7 g/dL (33.2-36.2); MEAN PLATELET VOLUME 8.7 fL (7.4-10.4); MONOCYTES # (AUTO) 0.97 x10^3/uL (0.2-0.8); MONOCYTES % (AUTO) 17 % (2-9); NEUTROPHILS # (AUTO) 3.88 x10^3/uL (1.8-6.8); NEUTROPHILS % (AUTO) 68 % (42-75); PLATELET COUNT 219 x10^3/uL (130-400); RED BLOOD COUNT 5.43 x10^6/uL (4.38-5.82); RED CELL DISTRIBUTION WIDTH 16.3 % (9.4-14.8)
[2020-06-14 09:17] LABS: MICROSCOPIC INDICATED
[2020-06-14 09:18] LABS: ALBUMIN 3.6 g/dL (3.4-5.0); CHLORIDE 108 mmol/L (98-107); CREATININE 0.96 mg/dL (0.7-1.3)
[2020-06-14 09:21] LABS: AMPHETAMINE SCREEN, URINE Negative (Negative); BARBITURATE SCREEN, URINE Negative (Negative); BENZODIAZEPINE SCREEN, URINE Negative (Negative); CANNABINOID SCREEN, URINE Negative (Negative); COCAINE SCREEN, URINE Negative (Negative); METHADONE SCREEN, URINE Negative (Negative); OPIATE SCREEN, URINE Negative (Negative)
[2020-06-14 09:29] LABS: ANION GAP 4 mmol/L (5-15); CALCIUM 9.5 mg/dL (8.5-10.1)
[2020-06-14 09:30] LABS: SALICYLATE LEVEL < 1.7 mg/dL (2.8-20.0)
--- NOTE | 2020-06-14 09:32 | NUR ---
Pt resting comfortbly in bed, call light within reach, side rails up x 2. Pt sts no needs at this time.
--- NOTE | 2020-06-14 09:53 | NUR ---
Pt ambulated w/out assistance w/ steady gait to RR. Pt resting in gurney locked in lowest position call light within reach rails up x 1. No needs expressed at this time.
--- NOTE | 2020-06-14 11:08 | NUR ---
Pt resting in gurney, call light within reach bed locked in lowest position side rails x 2. No needs expressed by pt at this time. Will continue to monitor.
[2020-06-14 12:10] VITALS: BP 112/72
--- NOTE | 2020-06-14 12:12 | NUR ---
Pt sleeping in [facility], no complaints, will continue to monitor.
--- NOTE | 2020-06-14 12:29 | NUR ---
Psych QUALITY CLOTH TESTER Otilio bedside.
--- NOTE | 2020-06-14 13:13 | NUR ---
Itz baker in ED - 06/14/20 at 1321 by ALDA AT BEDSIDE WITH PROVIDER. 3 SUTURES APPLIED WITH INSTRUCTIONS FOR REMOVAL.
== END 2020-06-14 13:19 ==
LOC: ED 09:04
DX: F33.9 Major depressive disorder, recurrent, unspecified (principal); R45.851 Suicidal ideations; R11.2 Nausea with vomiting, unspecified; I10 Essential (primary) hypertension; G40.909 Epilepsy, unspecified, not intractable, without status epilepticus; Z86.73 Personal history of transient ischemic attack (TIA), and cerebral infarction without residual deficits
CPT/HCPCS: 36415; 80048; 80307; 81001; 82040; 85025; 99285